=== PATIENT | female | born 1935 | race Caucasian/White ===

== ENCOUNTER 2017-09-25 19:15 | Inpatient (IN) | payer OTHER, MEDICAID ==
[~2017-09-25] VITALS: Ht 149.9 cm; Wt 42.5 kg
[2017-09-25] MEDS ORDERED: ASPirin 81 mg TAB PO ONE (19:45)
[2017-09-25 19:57] LABS: Basophils # (auto) 0.1 uL; Basophils % (auto) 0.9 % (0.0-2.0); Eosinophils # (auto) 0.1 uL; Eosinophils % (auto) 2.1 % (0.0-7.0); Hematocrit 36.2 % (36.0-46.0); Hemoglobin 12.4 g/dL (12.2-16.2); Lymphocytes # (auto) 1.3 uL; Lymphocytes % (auto) 22.7 % (10.0-50.0); Mean Corpuscular Hemoglobin 32.8 pg (28.0-32.0); Mean Corpuscular Hgb Conc. 34.3 g/dL (32.0-36.0); Mean Corpuscular Volume 95.4 fL (80.0-100.0); Monocytes # (auto) 0.6 uL; Monocytes % (auto) 10.1 % (0.0-12.0); Neutrophils # (auto) 3.6 uL; Neutrophils % (auto) 64.2 % (37.0-80.0); Platelet Count (auto) 310 10^3/uL (140-450); Red Blood Cells 3.79 10^6/uL (4.0-5.20); Red Cell Distribution Width 12.5 % (11.8-14.3); White Blood Cell 5.5 10^3/uL (4.4-10.8)
[2017-09-25 20:09] LABS: INR 0.94 (0.9-1.15); Partial Thromboplastin Time 26.4 sec (22.64-33.71); Prothrombin Time 10.2 sec (9.37-12.3)
[2017-09-25 20:16] LABS: Alanine Aminotransferase 18 U/L (13-56); Albumin 3.3 g/dL (3.4-5.0); Alkaline Phosphatase 106 U/L (45-117); Anion Gap 10 (5-15); Aspartate Aminotransferase 18 U/L (15-37); BUN/Creatinine Ratio 31.3; Bilirubin, Total 0.4 mg/dL (0.2-1.0); Blood Urea Nitrogen 30 mg/dL (7-18); Calcium 8.6 mg/dL (8.5-10.1); Carbon Dioxide 23 mmol/L (21-32); Chloride 90 mmol/L (98-107); GFR African American 72 mL/min; GFR Non-African American 59 mL/min; Glucose 164 mg/dL (74-106); Magnesium 2.2 mg/dL (1.6-2.6); Potassium 4.2 mmol/L (3.5-5.1); Sodium 123 mmol/L (136-145); Total Protein 8.5 g/dL (6.4-8.2)
[2017-09-25] MEDS ORDERED: cefTRIAXone 1GM/10ml IVPUSH 10 ML IV ONE (20:45)
[2017-09-25] MEDS ORDERED: HYDROcodone-ACET 5/325MG TAB PO PRN (22:30)
[2017-09-25] MEDS ORDERED: ACETAMINOPHEN 500 MG TAB PO PRN (22:30)
[2017-09-25] MEDS ORDERED: LORazepam 0.5 MG TAB PO PRN (22:30)
[2017-09-25] MEDS ORDERED: ONDANSETRON HCL 4 MG/2 ML VIAL IV PRN (22:30)
[2017-09-25] MEDS ORDERED: TEMAZEPAM 15 MG CAP PO PRN (22:30)
[2017-09-25] MEDS ORDERED: cloNIDine HCL 0.1 MG TAB PO ONE (22:45)
[2017-09-25 22:46] LABS: Urine Bacteria FEW /hpf (None Seen); Urine Blood Negative /uL (Negative); Urine Specific Gravity 1.012 (1.001-1.035); Urine WBC 2 /hpf (0 - 5)
[2017-09-25] MEDS ORDERED: cloNIDine HCL 0.1 MG TAB ONE (23:12)
[2017-09-26] VITALS (7 sets, daily range): BP systolic 99–163; BP diastolic 60–81
[2017-09-26] MEDS ORDERED: DEXTROSE (50%) 50ML SYRG IV PRN (01:15)
[2017-09-26] MEDS ORDERED: SODIUM CHLORIDE 0.9% 1,000 ML IV ONE (01:45)
[2017-09-26] MEDS ORDERED: cloNIDine HCL 0.1 MG TAB PO PRN (01:45)
[2017-09-26] MEDS: ACCU-CHEK COMFORT CURVE STRIP VI SCH ×4 (05:29→22:19)
[2017-09-26] MEDS: InsuLIN REG 1unit/0.01ml Soln (100units/ml) SC SCH ×4 (05:29→22:20)
[2017-09-26 06:50] LABS: Basophils # (auto) 0 uL; Basophils % (auto) 0.7 % (0.0-2.0); Eosinophils # (auto) 0.2 uL; Eosinophils % (auto) 4.7 % (0.0-7.0); Hemoglobin 10.8 g/dL (12.2-16.2); Lymphocytes # (auto) 1.1 uL; Lymphocytes % (auto) 24.3 % (10.0-50.0); Mean Corpuscular Volume 94.5 fL (80.0-100.0); Monocytes # (auto) 0.6 uL; Monocytes % (auto) 13.8 % (0.0-12.0); Neutrophils # (auto) 2.5 uL; Neutrophils % (auto) 56.5 % (37.0-80.0); Nucleated Red Blood Cells % 0.2 %; Platelet Count (auto) 283 10^3/uL (140-450); Red Blood Cells 3.28 10^6/uL (4.0-5.20); Red Cell Distribution Width 12.4 % (11.8-14.3); White Blood Cell 4.3 10^3/uL (4.4-10.8)
[2017-09-26 07:07] LABS: BUN/Creatinine Ratio 33.8; Calcium 7.9 mg/dL (8.5-10.1); Potassium 3.8 mmol/L (3.5-5.1)
[2017-09-26] MEDS: cefTRIAXone 1GM/10ml IVPUSH 10 ML IV SCH (09:37)
[2017-09-26] MEDS ORDERED: ACETAMINOPHEN 500 MG TAB PO PRN (13:00)
[2017-09-26] MEDS: glipiZIDE 5 MG TAB PO SCH (14:30)
[2017-09-26] MEDS: metFORMIN HYDROCHLORIDE 500 MG TAB PO SCH (18:00)
[2017-09-26] MEDS: FERROUS SULFATE 325 MG TAB PO SCH (18:40)
[2017-09-26] MEDS: Boost Glucose Control 8 Ounces PO SCH (18:41)
[2017-09-26] MEDS: SODIUM CHLORIDE 0.9% 1,000 ML IV SCH ×2 (18:42→22:20)
[2017-09-26] MEDS ORDERED: DONEPEZIL HYDROCHLORIDE 5 MG TAB PO SCH ×2 (22:00)
[2017-09-27 05:00] VITALS: BP 136/68
[2017-09-27] MEDS: SODIUM CHLORIDE 0.9% 1,000 ML IV SCH ×2 (05:01→12:10)
[2017-09-27] MEDS: InsuLIN REG 1unit/0.01ml Soln (100units/ml) SC SCH ×2 (06:42→11:30)
[2017-09-27] MEDS: metFORMIN HYDROCHLORIDE 500 MG TAB PO SCH (06:42)
[2017-09-27] MEDS: ACCU-CHEK COMFORT CURVE STRIP VI SCH ×2 (06:42→11:30)
[2017-09-27 06:47] LABS: Basophils # (auto) 0 uL; Basophils % (auto) 0.4 % (0.0-2.0); Eosinophils # (auto) 0.1 uL; Eosinophils % (auto) 2.8 % (0.0-7.0); Hemoglobin 10.3 g/dL (12.2-16.2); Lymphocytes # (auto) 0.8 uL; Lymphocytes % (auto) 15.5 % (10.0-50.0); Mean Corpuscular Hgb Conc. 34.3 g/dL (32.0-36.0); Mean Corpuscular Volume 96.2 fL (80.0-100.0); Monocytes # (auto) 0.6 uL; Monocytes % (auto) 12.3 % (0.0-12.0); Neutrophils # (auto) 3.5 uL; Platelet Count (auto) 266 10^3/uL (140-450); Red Blood Cells 3.12 10^6/uL (4.0-5.20); Red Cell Distribution Width 12.6 % (11.8-14.3); White Blood Cell 5.1 10^3/uL (4.4-10.8)
[2017-09-27 07:02] LABS: Albumin 2.5 g/dL (3.4-5.0); BUN/Creatinine Ratio 33.8; Bilirubin, Total 0.3 mg/dL (0.2-1.0); Calcium 7.3 mg/dL (8.5-10.1); Potassium 4.3 mmol/L (3.5-5.1); Total Protein 6.6 g/dL (6.4-8.2)
[2017-09-27 08:00] VITALS: BP 140/66
[2017-09-27] MEDS: Boost Glucose Control 8 Ounces PO SCH ×2 (08:00→12:10)
[2017-09-27] MEDS: cefTRIAXone 1GM/10ml IVPUSH 10 ML IV SCH (09:46)
[2017-09-27] MEDS: glipiZIDE 5 MG TAB PO SCH (09:50)
[2017-09-27] MEDS ORDERED: CITALOPRAM HYDROBR 20 MG TAB PO SCH (10:00)
[2017-09-27] MEDS: FERROUS SULFATE 325 MG TAB PO SCH (10:00)
[2017-09-27] MEDS ORDERED: VALSARTAN 80 MG TAB PO SCH (10:00)
[2017-09-27 11:36] VITALS: BP 140/66
[2017-09-27 12:00] VITALS: BP 156/64
== END 2017-09-27 16:35 | disposition home or self-care (01) | DRG 683 ==
LOC: ER 19:15 → TELE 19:16 → TELE-WESTW 23:07
PROVIDERS: ADMIT Nurse Practitioner Family; ATTEND Family Medicine
DX: I12.9 Hypertensive chronic kidney disease with stage 1 through stage 4 chronic kidney disease, or unspecified chronic kidney disease (principal); E87.1 Hypo-osmolality and hyponatremia; E11.22 Type 2 diabetes mellitus with diabetic chronic kidney disease; J84.89 Other specified interstitial pulmonary diseases; E44.1 Mild protein-calorie malnutrition; E11.9 Type 2 diabetes mellitus without complications; F03.90 Unspecified dementia, unspecified severity, without behavioral disturbance, psychotic disturbance, mood disturbance, and anxiety; I70.0 Atherosclerosis of aorta; Z79.84 Long term (current) use of oral hypoglycemic drugs; Z82.49 Family history of ischemic heart disease and other diseases of the circulatory system; I16.0 Hypertensive urgency; N18.3 Chronic kidney disease, stage 3 (moderate)
CPT/HCPCS: 36415; 71045; 71250; 74176; 80048; 80053; 81001; 82962; 83605; 83735; 83880; 84443; 84484; 85025; 85610; 85730; 87040; 87086; 87088; 87186; 87804; 93005; 94761; 96374; J1815

== ENCOUNTER → 2017-12-20 | Outpatient (CLI) | payer OTHER, MEDICAID ==
[~2017-12-20] MED LIST: ALBUTEROL SULF 2.5 MG/0.5ML(0.5%) NEB SOLN ONE
== END | disposition home or self-care (01) ==
LOC: RT 08:52
PROVIDERS: ATTEND Internal Medicine Pulmonary Disease
DX: J84.112 Idiopathic pulmonary fibrosis (principal)
CPT/HCPCS: 94060; 94640; 94727; 94729

== ENCOUNTER 2018-01-30 22:45 | Inpatient (IN) | payer OTHER, MEDICAID ==
[~2018-01-30] VITALS: Ht 152.4 cm; Wt 33.3 kg
[2018-01-31] LABS: Urine Bacteria FEW /hpf (None Seen); Urine Blood Negative /uL (Negative); Urine Specific Gravity 1.019 (1.001-1.035); Urine WBC 21 /hpf (0 - 5)
[2018-01-31 00:46] LABS: Basophils # (auto) 0.1 uL; Basophils % (auto) 0.7 % (0.0-2.0); Eosinophils # (auto) 0 uL; Eosinophils % (auto) 0.4 % (0.0-7.0); Hematocrit 38.6 % (36.0-46.0); Lymphocytes # (auto) 0.8 uL; Lymphocytes % (auto) 11.8 % (10.0-50.0); Mean Corpuscular Hemoglobin 32.3 pg (28.0-32.0); Mean Corpuscular Hgb Conc. 33.5 g/dL (32.0-36.0); Mean Corpuscular Volume 96.1 fL (80.0-100.0); Monocytes # (auto) 0.6 uL; Neutrophils # (auto) 5.6 uL; Neutrophils % (auto) 79.1 % (37.0-80.0); Platelet Count (auto) 376 10^3/uL (140-450); Red Blood Cells 4.02 10^6/uL (4.0-5.20); Red Cell Distribution Width 13.6 % (11.8-14.3); White Blood Cell 7.1 10^3/uL (4.4-10.8)
[2018-01-31 00:53] LABS: INR 0.97 (0.9-1.15); Partial Thromboplastin Time 25.6 sec (23.78-33.04); Prothrombin Time 10.4 sec (9.27-12.13)
[2018-01-31 00:55] LABS: Alanine Aminotransferase 24 U/L (13-56); Albumin 3.2 g/dL (3.4-5.0); Amylase 155 U/L (25-115); Anion Gap 14 (5-15); Aspartate Aminotransferase 15 U/L (15-37); BUN/Creatinine Ratio 28.2; Blood Urea Nitrogen 37 mg/dL (7-18); Calcium 8.6 mg/dL (8.5-10.1); Carbon Dioxide 19 mmol/L (21-32); Chloride 103 mmol/L (98-107); GFR African American 50 mL/min; GFR Non-African American 41 mL/min; Glucose 141 mg/dL (74-106); Lipase 462 U/L (73-393); Magnesium 2.2 mg/dL (1.6-2.6); Potassium 3.7 mmol/L (3.5-5.1); Sodium 136 mmol/L (136-145)
[2018-01-31 01:00] LABS: Alkaline Phosphatase 83 U/L (45-117); Bilirubin, Total 0.4 mg/dL (0.2-1.0); Total Protein 8.4 g/dL (6.4-8.2)
[2018-01-31] MEDS ORDERED: ALBUTEROL SULF 2.5 MG/0.5ML(0.5%) NEB SOLN NEB ONE (03:30)
[2018-01-31] MEDS ORDERED: IPRATROPIUM BROM 0.5 MG/2.5ML INH SOL NEB ONE (03:30)
[2018-01-31] MEDS ORDERED: LEVOFLOXACIN 750MG 150 ML IV ONE (03:30)
[2018-01-31] MEDS: InsuLIN REG 1unit/0.01ml Soln (100units/ml) SC SCH ×4 (07:00→22:29)
[2018-01-31] MEDS ORDERED: DEXTROSE (50%) 50ML SYRG IV PRN (07:00)
[2018-01-31] MEDS ORDERED: LORazepam 0.5 MG TAB PO PRN (07:00)
[2018-01-31] MEDS ORDERED: ONDANSETRON HCL 4 MG/2 ML VIAL IV PRN (07:00)
[2018-01-31] MEDS ORDERED: HYDROcodone-ACET 5/325MG TAB PO PRN (07:00)
[2018-01-31] MEDS: ACCU-CHEK COMFORT CURVE STRIP VI SCH ×4 (07:00→22:29)
[2018-01-31] MEDS ORDERED: ACETAMINOPHEN 500 MG TAB PO PRN (07:00)
[2018-01-31] MEDS: SODIUM CHLORIDE 0.9% 1,000 ML IV SCH (08:59)
[2018-01-31 10:15] VITALS: BP 137/71
[2018-01-31] MEDS: IPRATROPIUM BROM 0.5 MG/2.5ML INH SOL NEB SCH ×2 (11:27→20:06)
[2018-01-31] MEDS: ALBUTEROL SULF 2.5 MG/0.5ML(0.5%) NEB SOLN NEB SCH ×2 (11:28→20:06)
[2018-01-31] MEDS ORDERED: cefTRIAXone 1GM/10ml IVPUSH 10 ML IV ONE (14:15)
[2018-01-31] MEDS: ENOXAPARIN SOD 30 MG/0.3 ML SYRINGE SC SCH (14:47)
[2018-01-31] MEDS: PANTOPRAZOLE 40 MG TAB PO SCH (14:47)
[2018-01-31 16:55] VITALS: BP 152/69
[2018-01-31 22:00] VITALS: BP 139/64
[2018-02-01] VITALS (7 sets, daily range): BP systolic 132–163; BP diastolic 62–76
[2018-02-01] MEDS: ALBUTEROL SULF 2.5 MG/0.5ML(0.5%) NEB SOLN NEB SCH ×5 (01:01→23:52)
[2018-02-01] MEDS: IPRATROPIUM BROM 0.5 MG/2.5ML INH SOL NEB SCH ×5 (01:01→23:52)
[2018-02-01] MEDS ORDERED: METF-370 PO (02:39)
[2018-02-01] MEDS ORDERED: VALS320T15 PO (02:39)
[2018-02-01] MEDS ORDERED: DONE5TAB31 PO (02:39)
[2018-02-01] MEDS ORDERED: CALC-440 PO (02:39)
[2018-02-01] MEDS ORDERED: ESCI10TA PO (02:39)
[2018-02-01] MEDS ORDERED: FERR-20 PO (02:39)
[2018-02-01] MEDS ORDERED: GLIP2.5T28 PO (02:39)
[2018-02-01 05:54] LABS: Basophils # (auto) 0 uL; Basophils % (auto) 0.5 % (0.0-2.0); Eosinophils # (auto) 0.1 uL; Eosinophils % (auto) 2.6 % (0.0-7.0); Hematocrit 32.6 % (36.0-46.0); Lymphocytes # (auto) 1.1 uL; Lymphocytes % (auto) 20.6 % (10.0-50.0); Mean Corpuscular Hgb Conc. 33.7 g/dL (32.0-36.0); Mean Corpuscular Volume 94.9 fL (80.0-100.0); Monocytes # (auto) 0.6 uL; Monocytes % (auto) 10.4 % (0.0-12.0); Neutrophils # (auto) 3.5 uL; Neutrophils % (auto) 65.9 % (37.0-80.0); Platelet Count (auto) 285 10^3/uL (140-450); Red Blood Cells 3.44 10^6/uL (4.0-5.20); Red Cell Distribution Width 13.4 % (11.8-14.3); White Blood Cell 5.3 10^3/uL (4.4-10.8)
[2018-02-01 06:31] LABS: Amylase 89 U/L (25-115); Anion Gap 9 (5-15); BUN/Creatinine Ratio 27.8; Blood Urea Nitrogen 25 mg/dL (7-18); Calcium 8.1 mg/dL (8.5-10.1); Carbon Dioxide 21 mmol/L (21-32); Chloride 107 mmol/L (98-107); GFR African American 77 mL/min; GFR Non-African American 64 mL/min; Glucose 94 mg/dL (74-106); Lipase 194 U/L (73-393); Potassium 3.3 mmol/L (3.5-5.1); Sodium 137 mmol/L (136-145)
[2018-02-01] MEDS: PANTOPRAZOLE 40 MG TAB PO SCH (09:40)
[2018-02-01] MEDS: cefTRIAXone 1GM/10ml IVPUSH 10 ML IV SCH (09:40)
[2018-02-01] MEDS: ENOXAPARIN SOD 30 MG/0.3 ML SYRINGE SC SCH (09:41)
[2018-02-01] MEDS: ACCU-CHEK COMFORT CURVE STRIP VI SCH ×4 (09:41→22:00)
[2018-02-01] MEDS: InsuLIN REG 1unit/0.01ml Soln (100units/ml) SC SCH ×4 (09:47→22:00)
[2018-02-01] MEDS ORDERED: POTASSIUM CHL 20 Meq TABLET PO ONE (10:00)
[2018-02-01] MEDS: FERROUS SULFATE 325 MG TAB PO SCH ×2 (12:41→18:00)
[2018-02-01] MEDS: SODIUM CHLORIDE 0.9% 1,000 ML IV SCH ×2 (18:05→19:46)
[2018-02-01] MEDS: DONEPEZIL HYDROCHLORIDE 5 MG TAB PO SCH (22:00)
[2018-02-02 05:00] VITALS: BP 136/75
[2018-02-02 06:30] LABS: BUN/Creatinine Ratio 31.6; Calcium 8.2 mg/dL (8.5-10.1); Potassium 3.9 mmol/L (3.5-5.1)
[2018-02-02] MEDS: InsuLIN REG 1unit/0.01ml Soln (100units/ml) SC SCH ×4 (06:50→21:43)
[2018-02-02] MEDS: ACCU-CHEK COMFORT CURVE STRIP VI SCH ×4 (06:50→21:44)
[2018-02-02 07:40] VITALS: BP 136/75
[2018-02-02] MEDS: ALBUTEROL SULF 2.5 MG/0.5ML(0.5%) NEB SOLN NEB SCH ×3 (07:47→19:25)
[2018-02-02] MEDS: IPRATROPIUM BROM 0.5 MG/2.5ML INH SOL NEB SCH ×3 (07:47→19:25)
[2018-02-02 08:11] VITALS: BP 140/73
[2018-02-02] MEDS: FERROUS SULFATE 325 MG TAB PO SCH ×2 (09:30→18:31)
[2018-02-02] MEDS: cefTRIAXone 1GM/10ml IVPUSH 10 ML IV SCH (09:30)
[2018-02-02] MEDS: PANTOPRAZOLE 40 MG TAB PO SCH (09:31)
[2018-02-02] MEDS: ENOXAPARIN SOD 30 MG/0.3 ML SYRINGE SC SCH (09:32)
[2018-02-02] MEDS: SODIUM CHLORIDE 0.9% 1,000 ML IV SCH (11:02)
[2018-02-02 13:00] VITALS: BP 134/66
[2018-02-02 16:18] VITALS: BP 126/61
[2018-02-02 21:30] VITALS: BP 128/60
[2018-02-02] MEDS: DONEPEZIL HYDROCHLORIDE 5 MG TAB PO SCH (21:47)
[2018-02-03] VITALS (7 sets, daily range): BP systolic 126–165; BP diastolic 55–83
[2018-02-03] MEDS: SODIUM CHLORIDE 0.9% 1,000 ML IV SCH (02:50)
[2018-02-03] MEDS: InsuLIN REG 1unit/0.01ml Soln (100units/ml) SC SCH ×3 (06:24→17:00)
[2018-02-03] MEDS: ACCU-CHEK COMFORT CURVE STRIP VI SCH ×3 (06:25→17:44)
[2018-02-03] MEDS: ALBUTEROL SULF 2.5 MG/0.5ML(0.5%) NEB SOLN NEB SCH ×4 (07:25→18:48)
[2018-02-03] MEDS: IPRATROPIUM BROM 0.5 MG/2.5ML INH SOL NEB SCH ×4 (07:25→18:48)
[2018-02-03] MEDS: FERROUS SULFATE 325 MG TAB PO SCH ×2 (08:58→18:36)
[2018-02-03] MEDS: cefTRIAXone 1GM/10ml IVPUSH 10 ML IV SCH (08:59)
[2018-02-03] MEDS: PANTOPRAZOLE 40 MG TAB PO SCH (09:05)
[2018-02-03] MEDS: ENOXAPARIN SOD 30 MG/0.3 ML SYRINGE SC SCH (09:05)
[2018-02-03] MEDS ORDERED: SACC250C PO (11:57)
[2018-02-03] MEDS ORDERED: LEVO250T45 PO (11:57)
[2018-02-03] MEDS ORDERED: VALSARTAN 80 MG TAB PO ONE (12:00)
[2018-02-03] MEDS ORDERED: LISINOPRIL 20 MG TAB PO ONE (14:00)
== END 2018-02-03 19:20 | disposition home health service (06) | DRG 871 ==
LOC: ER 22:52 → TELE 22:53 → TELE-WESTW 01-31 15:41
PROVIDERS: ADMIT Nurse Practitioner Family; ATTEND Internal Medicine
DX: A41.9 Sepsis, unspecified organism (principal); K85.90 Acute pancreatitis without necrosis or infection, unspecified; N17.0 Acute kidney failure with tubular necrosis; E44.1 Mild protein-calorie malnutrition; Z68.1 Body mass index [BMI] 19.9 or less, adult; N30.00 Acute cystitis without hematuria; I10 Essential (primary) hypertension; Z90.49 Acquired absence of other specified parts of digestive tract; E11.22 Type 2 diabetes mellitus with diabetic chronic kidney disease; E87.6 Hypokalemia; F03.90 Unspecified dementia, unspecified severity, without behavioral disturbance, psychotic disturbance, mood disturbance, and anxiety; I12.9 Hypertensive chronic kidney disease with stage 1 through stage 4 chronic kidney disease, or unspecified chronic kidney disease; I35.9 Nonrheumatic aortic valve disorder, unspecified; J84.10 Pulmonary fibrosis, unspecified; N18.9 Chronic kidney disease, unspecified; Z82.49 Family history of ischemic heart disease and other diseases of the circulatory system; J20.9 Acute bronchitis, unspecified
CPT/HCPCS: 36415; 71046; 71250; 74176; 76700; 80048; 80053; 81001; 82150; 82962; 83690; 83735; 84484; 85025; 85610; 85730; 87040; 87086; 87493; 93005; 94640; 96361; 96365; 96372; 96375; 97163; 99291; J0696; J1815; J1956

== ENCOUNTER 2018-04-12 17:08 | Emergency (ER) | payer OTHER, MEDICAID ==
[~2018-04-12] VITALS: Ht 149.9 cm; Wt 28.6 kg
[~2018-04-12 17:08] MED LIST changes: -ALBUTEROL SULF 2.5 MG/0.5ML(0.5%) NEB SOLN ONE; +CALC-440 PO; +DONE5TAB31 PO; +ESCI10TA PO; +FERR-20 PO; +GLIP2.5T28 PO; +LEVO250T19 PO; +METF-370 PO; +SACC250C PO; +VALS320T15 PO
[2018-04-12 17:31] VITALS: BP 150/79
[2018-04-12] MEDS ORDERED: ACETAMINOPHEN/CODEINE#3 (300/30mg) TAB PO ONE (20:00)
[2018-04-12] MEDS ORDERED: cefTRIAXone SOD 1,000 MG VL IM ONE (20:00)
[2018-04-12] MEDS ORDERED: LIDOCAINE 1% HCL (LOCAL ANESTH.) INJ 20ML MDV ONE (20:09)
== END 2018-04-12 20:47 | disposition home or self-care (01) ==
LOC: ER 17:13
DX: S00.93XA Contusion of unspecified part of head, initial encounter (principal); N39.0 Urinary tract infection, site not specified; E11.9 Type 2 diabetes mellitus without complications; I10 Essential (primary) hypertension; W19.XXXA Unspecified fall, initial encounter; Y93.89 Activity, other specified; Y99.8 Other external cause status; Y92.89 Other specified places as the place of occurrence of the external cause
CPT/HCPCS: 70450; 82962; 93005; 96372; 99284; J0696; J2001